=== PATIENT | female | born 1985 | race Caucasian/White ===

== ENCOUNTER 2024-12-03 17:28 | Emergency (ER) | payer OTHER, BC ==
[2024-12-03 18:18] VITALS: BP 133/74; PULSE 84
== END 2024-12-03 17:49 | disposition home or self-care (01) ==
LOC: VM.ED 17:28
DX: M79.672 Pain in left foot (principal); Z88.2 Allergy status to sulfonamides; Z79.51 Long term (current) use of inhaled steroids; Z88.8 Allergy status to other drugs, medicaments and biological substances; Z79.899 Other long term (current) drug therapy
CPT/HCPCS: 73630-LT; 99282; 99283